=== PATIENT | female | born 1975 ===

== ENCOUNTER 2022-05-17 12:00 | Inpatient (IN) | payer OTHER ==
[~2022-05-17] VITALS: Ht 152.4 cm; Wt 45.4 kg
== END 2022-05-21 14:37 | disposition home or self-care (01) | DRG 743 ==
LOC: O/R 05-20 06:31 → SURG 05-20 12:00 → SURH 05-20 21:19 → SURG 05-20 22:00 → SURH 05-21 14:37
PROVIDERS: ADMIT Obstetrics & Gynecology Gynecologic Oncology; ATTEND Obstetrics & Gynecology Gynecologic Oncology
PROC: 0UT64ZZ Resection of Left Fallopian Tube, Percutaneous Endoscopic Approach (ICD-10-PCS; 2022-05-20)
PROC: 0UT14ZZ Resection of Left Ovary, Percutaneous Endoscopic Approach (ICD-10-PCS; 2022-05-20)
PROC: 0TN74ZZ Release Left Ureter, Percutaneous Endoscopic Approach (ICD-10-PCS; 2022-05-20)
PROC: 0TN64ZZ Release Right Ureter, Percutaneous Endoscopic Approach (ICD-10-PCS; 2022-05-20)
PROC: 0UB94ZZ Excision of Uterus, Percutaneous Endoscopic Approach (ICD-10-PCS; 2022-05-20)
PROC: 0UT94ZZ Resection of Uterus, Percutaneous Endoscopic Approach (ICD-10-PCS; principal; 2022-05-20 22:00)
DX: D25.1 Intramural leiomyoma of uterus (principal); D25.2 Subserosal leiomyoma of uterus; N72 Inflammatory disease of cervix uteri; N80.112 Superficial endometriosis of left ovary; Z20.822 Contact with and (suspected) exposure to COVID-19; N83.01 Follicular cyst of right ovary